=== PATIENT | female | born 1950 | race Caucasian/White ===

== ENCOUNTER 2020-01-08 10:51 | Emergency (ER) | payer BC, MEDICAID ==
[~2020-01-08] VITALS: Ht 162.6 cm; Wt 88.2 kg
[2020-01-08] MEDS ORDERED: proCHLORperazine 10 MG/2 ml inj IV ONE (12:15)
[2020-01-08] MEDS ORDERED: normal saline 1000ml 1,000 ML IV ONE (12:15)
[2020-01-08] MEDS ORDERED: diphenhydrAMINE 50 mg/ml inj IV ONE (12:15)
[2020-01-08] MEDS ORDERED: ketorolac tromethamine 15mg/ml inj. IV ONE (13:05)
[2020-01-08] MEDS ORDERED: LORazepam 2 mg/ml vial IV ONE (13:30)
[2020-01-08 13:48] VITALS: BP 172/93
== END 2020-01-08 14:33 | disposition home or self-care (01) ==
LOC: ER 10:52
DX: G43.909 Migraine, unspecified, not intractable, without status migrainosus (principal); Z88.5 Allergy status to narcotic agent
CPT/HCPCS: 70450; 96361; 96374; 96375; 99284; J0780; J1200; J1885; J2060; J7030

== ENCOUNTER 2020-01-10 12:45 | Outpatient (CLI) | payer BC, MEDICAID ==
[2020-01-10] MEDS ORDERED: GADOTERATE MEGLUMINE 7.5 MMOL/15 ML VIAL IV ONE (19:01)
== END 2020-01-10 23:59 | disposition home or self-care (01) ==
LOC: RAD 12:45
PROVIDERS: ATTEND Optometrist
DX: R51.9 Headache, unspecified (principal); H49.02 Third [oculomotor] nerve palsy, left eye
CPT/HCPCS: 70543; A9575

== ENCOUNTER 2020-01-30 10:53 | Emergency (ER) | payer BC, MEDICAID ==
[~2020-01-30] VITALS: Ht 165.1 cm; Wt 84.8 kg
[2020-01-30 12:17] LABS: ANION GAP 9 (8-16); BLOOD UREA NITROGEN 19 MG/DL (7-18); BUN/CREATININE RATIO 24.4 (6.6-38.0); CALCIUM 10.4 MG/DL (8.5-10.1); CHLORIDE 106 MMOL/L (99-107); CREATININE 0.78 MG/DL (0.40-0.90); GLUCOSE 99 MG/DL (70-104); POTASSIUM 3.6 MMOL/L (3.5-5.1); SODIUM 143 MMOL/L (135-145); TOTAL CARBON DIOXIDE 28.3 MMOL/L (24-32); eGFR 74 ML/MIN
[2020-01-30] MEDS ORDERED: iohexol 350MG/ML 100ml bottle IV ONE (12:26)
[2020-01-30 14:19] VITALS: BP 174/102
== END 2020-01-30 14:15 | disposition home or self-care (01) ==
LOC: ER 10:54
DX: H49.02 Third [oculomotor] nerve palsy, left eye (principal); G43.909 Migraine, unspecified, not intractable, without status migrainosus; Z79.899 Other long term (current) drug therapy
CPT/HCPCS: 36415; 70498; 80048; 99285; Q9967